=== PATIENT | female | born 1980 | race Caucasian/White ===

== ENCOUNTER 2024-10-28 08:41 | Day surgery (SDC) | payer BC, OTHER ==
[2024-10-28 08:56] VITALS: BMI 31.3
[2024-10-28] MEDS ORDERED: PROPOFOL 20 ML ONE ×2 (09:18→09:29)
[2024-10-28 09:59] VITALS: RESP 16; TEMP 97.8
[2024-10-28 10:11] VITALS: BP 112/70; PULSE 74
== END 2024-10-28 10:14 | disposition home or self-care (01) ==
LOC: FASU-ENDO 08:41
PROVIDERS: ATTEND Internal Medicine Gastroenterology
PROC: 0DJD8ZZ Inspection of Lower Intestinal Tract, Via Natural or Artificial Opening Endoscopic (ICD-10-PCS; principal; 2024-10-28 09:27)
DX: Z12.11 Encounter for screening for malignant neoplasm of colon (principal); K57.30 Diverticulosis of large intestine without perforation or abscess without bleeding; K64.4 Residual hemorrhoidal skin tags
CPT/HCPCS: 81025